=== PATIENT | male | born 1955 | race Caucasian/White ===

== ENCOUNTER 2024-06-23 05:05 | Day surgery (SDC) | payer OTHER ==
[2024-06-19 10:03] VITALS: BMI 22.0
[2024-06-23 06:45] VITALS: RESP 18
[2024-06-23] MEDS ORDERED: KETAMINE HCL 200 MG/20 ML VIAL ONE (08:39)
[2024-06-23] MEDS ORDERED: MIDAZOLAM HCL 2 MG/2 ML SINGLE DOSE VIAL ONE (08:39)
[2024-06-23 09:41] VITALS: BP 144/83; PULSE 85; TEMP 97.8
== END 2024-06-23 09:50 | disposition home or self-care (01) ==
LOC: JASU-SURG 05:05
PROVIDERS: ATTEND Urology
PROC: 0TF4XZZ Fragmentation in Left Kidney Pelvis, External Approach (ICD-10-PCS; principal; 2024-06-23 08:42)
DX: N20.0 Calculus of kidney (principal)